=== PATIENT | female | born 1950 | race Caucasian/White ===

== ENCOUNTER → 2017-08-15 | Outpatient (CLI) | payer MEDICARE, OTHER ==
[~2017-08-15] MED LIST: CELEBREX 200MG200 MG PO; CRESTOR 10MG10 MG PO; ELITE MAGNESIUM1 TAB PO; LIPITOR 10MG10 MG PO; MVI; NEXIUM40 MG PO; SAVELLA25 MG PO; VITAMIN D2000 I1 PO; ZIAC 5/6.25MG T1 TAB
== END ==
LOC: MC.RAD 08:31
DX: Z12.31 Encounter for screening mammogram for malignant neoplasm of breast (principal)

== ENCOUNTER → 2018-08-27 | Outpatient (CLI) | payer MEDICARE, OTHER | LOC: MC.RAD 10:41 | DX: Z12.31 Encounter for screening mammogram for malignant neoplasm of breast (principal) ==

== ENCOUNTER → 2019-09-15 | Outpatient (CLI) | payer MEDICARE, OTHER | LOC: MC.RAD 10:24 | DX: Z12.31 Encounter for screening mammogram for malignant neoplasm of breast (principal) ==

== ENCOUNTER → 2020-09-16 | Outpatient (CLI) | payer MEDICARE, OTHER | LOC: MC.RAD 08:53 | DX: Z12.31 Encounter for screening mammogram for malignant neoplasm of breast (principal) ==

== ENCOUNTER → 2021-09-28 | Outpatient (CLI) | payer MEDICARE, OTHER | LOC: MC.RAD 09:15 | DX: Z12.31 Encounter for screening mammogram for malignant neoplasm of breast (principal) ==

== ENCOUNTER → 2023-07-12 | Outpatient (CLI) | payer MEDICARE, OTHER | LOC: COL.VAS 07-11 08:45 | DX: I51.7 Cardiomegaly (principal); R55 Syncope and collapse ==